=== PATIENT | female | born 1955 | race Caucasian/White ===

== ENCOUNTER 2018-02-26 13:33 | Inpatient (IN) | payer MEDICARE, BC ==
[~2018-02-26 13:33] MED LIST: BUPIVACAINE HCL 0.25%/EPI. PF 30 ML VIAL IJ ONE; DESFLURANE 240 ML LIQUID IH ONE; DEXAMETHASONE SOD PHOS 4 MG/ML VIAL ONE; ENOXAPARIN SODIUM 40 MG/0.4 ML DISP.SYRIN SQ ONE; FAMOTIDINE/PF 20 MG/2 ML VIAL ONE; GLYCOPYRROLATE 0.2 MG/1 ML 1 ML ONE; HYDROmorphone HCL/PF 1 MG/ML DISP.SYRIN ONE; LABETALOL HCL 100MG/20ML VIAL ONE; LABETALOL HCL 20 MG/4 ML SYRINGE IV ONE; LACTATED RINGERS 1,000 ML IV.SOLN IV ONE; LIDOCAINE HCL/PF 2% 100 MG/5 ML VIAL IJ ONE; MORPHINE SULFATE 10 MG/ML VIAL ONE; NORMAL SALINE 1,000 ML IV.SOLN IV ONE; ONDANSETRON HCL/PF 4 MG/ 2ML VIAL ONE; PROPOFOL 200 MG/20 ML VIAL IV ONE; ROCURONIUM BROMIDE 10 MG/ML 5ML VIAL ONE; SUCCINYLCHOLINE CHLORIDE 20 MG/ML 10ML VIAL ONE; SUGAMMADEX 200 mg/2mL 200 MG/2 ML VIAL IV ONE; ceFAZolin SODIUM 1 GM VIAL ONE; ePHEDrine SULFATE 50 MG/1 ML IVP ONE; fentaNYL CITRATE/PF 100 MCG/ 2ML AMP ONE
[2018-02-26] MEDS ORDERED: BUPIVACAINE HCL IV ONE (14:26)
[2018-02-26] MEDS ORDERED: fentaNYL CITRATE/PF 100 MCG/ 2ML AMP ONE (16:43)
[2018-02-26] MEDS ORDERED: PROMETHAZINE HCL 25 MG in 0.9 % SODIUM CHLORIDE 50 ML IV PRN (17:35)
[2018-02-26] MEDS ORDERED: ONDANSETRON HCL/PF 4 MG/ 2ML VIAL IVP PRN (17:35)
[2018-02-26] MEDS ORDERED: LEVALBUTEROL HCL 1.25 MG/3 ML AMPUL.NEB NEB PRN (17:35)
[2018-02-26] MEDS ORDERED: ACETAMINOPHEN 1,000 MG/100 ML INJ IV PRN (17:35)
--- NOTE | 2018-02-26 17:48 | History and Physical Report ---
History of Present Illnes - History of Present Illness Reason for Visit: OBesity History of Present Illness: Patient underwent sleeve gastrectomy today. She will be admitted to Acute care for further post op management. 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 Gastrointestinal: GERD Musculoskeletal: Osteoarthritis, Other (fibromyalgia) Endocrine: Hypothyroidism - Past Surgical History Past Surgical History: Cholecystectomy, Total Knee Replacement, Tonsillectomy, Other (D&C x 2) - Past Family History Mother Family History: CAD Brother 1 Family History: Hypertension Father Family History: CVA - Past Social History Smoke: No Alcohol: None Drugs: None Lives: With Family - Health Maintenance Health Maintenance: Pneumococcal Vaccine Influenza Vaccine: No Pneumonia Vaccine: No Resuscitation Status: Resusciation Status Resuscitation Status Full Code Review of Systems - Review of Systems Constitutional: negative: Fever, Weakness Eyes: negative: conjunctivae inflammation ENT: negative: Ear Pain, Nose Discharge Respiratory: negative: Cough, Shortness of Breath Cardiovascular: negative: Chest Pain Gastrointestinal: Abdominal Pain. negative: Nausea, Vomiting Genitourinary: negative: Dysuria, Frequency Musculoskeletal: negative: Back Pain Skin: negative: Rash Neurological: negative: Weakness - Medications/Allergies Allergies/Adverse Reactions: Allergies Allergy/AdvReac Type Severity Reaction Status Date / Time propoxyphene [From Darvon] Allergy Verified 02/26/18 17:17 Tetracyclines Allergy Verified 02/26/18 17:17 Home Medications: Home Medications Carisoprodol 350 mg PO QID PRN 02/26/18 Gabapentin 300 mg PO TID 02/26/18 Levothyroxine Sodium 75 mcg PO DAILY 02/26/18 Lisinopril 5 - 10 mg PO DAILY 02/26/18 Metoprolol Succinate 25 mg PO DAILY 02/26/18 Metoprolol Succinate [Toprol Xl] 12.5 mg PO DAILY 02/26/18 Omeprazole 20 mg PO DAILY 02/26/18 Promethazine HCl [Phenergan] 50 mg PO Q6H PRN 02/26/18 Simvastatin 20 mg PO DAILY 02/26/18 Tramadol HCl [Ultram] 50 mg PO BID PRN 02/26/18 Exam - Exam General: Alert, Oriented to Person, Oriented to Place, Oriented to Time, C ooperative, No acute distress HEENT: Atraumatic, PERRLA, EOMI, Mouth Mucous membr. moist/[employer] Neck: Normal Range of Motion Lungs: Clear to auscultation, Normal air movement, Speaks full Sentences Cardiovascular: Regular rate Murmur: No: Systolic Murmur Abdomen: Normal bowel sounds Integumentary: Normal Extremities: No edema Neurological: Normal gait, Normal speech, Strength Equal Bilat, Normal tone Psych/Mental Status: Mental status NL, Mood NL, Appropriate Affect Assessment/Plan - Assessment/Plan (1) S/P gastric surgery Status: Acute Current Visit: Yes Plan: Admit to Acute for IVF. SCD"s and lovenox for DVT prevention. IV H2 heidi. IV pain meds today and transisition to oral in 24 hours. (2) Morbid obesity Status: Acute Current Visit: Yes (3) HTN (hypertension) Status: Chronic Current Visit: Yes Qualifiers: Hypertension type: essential hypertension Qualified Code(s): I10 - Essential (primary) hypertension Plan: Hold lisinopril and metoprolol. Watch BP. 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 IF PVC's become symptomatic, she may have to do longer. VTE Assessment - RISK FACTOR SCORE VTE RISK FACTOR SCORES: AGE OVER 60 YEARS, MAJOR SURGERY/ANESTHESIA TIME > 1 HOUR - RISK VTE MODERATE RISK: SCORE OF 2 (RISK PROXIMAL DVT 2-4%) PROPHYAXIS NEEDED
[2018-02-26] MEDS ORDERED: ENOXAPARIN SODIUM 40 MG/0.4 ML DISP.SYRIN SQ SCH (18:00)
[2018-02-26 19:52] VITALS: BMI 128.2
[2018-02-26] MEDS ORDERED: 0.9 % SODIUM CHLORIDE 50 ML IV ONE (20:40)
[2018-02-26] MEDS: FAMOTIDINE/PF 20 MG/2 ML VIAL IVP SCH (21:20)
[2018-02-26] MEDS ORDERED: 0.9 % SODIUM CHLORIDE 250 ML IV ONE (21:29)
[2018-02-26] MEDS: MORPHINE SULFATE 4 MG/ML PREFILLED SYR IVP PRN (21:50)
[2018-02-26] MEDS: ceFAZolin SODIUM 1 GM VIAL IV SCH (21:54)
[2018-02-27] MEDS: KETOROLAC TROMETHAMINE 30 MG/1ML VIAL IVP PRN ×4 (01:00→17:58)
[2018-02-27] MEDS: 0.9 % SODIUM CHLORIDE 1,000 ML IV SCH ×4 (01:30→18:00)
[2018-02-27] MEDS: MORPHINE SULFATE 4 MG/ML PREFILLED SYR IVP PRN (01:31)
[2018-02-27] MEDS ORDERED: 0.9 % SODIUM CHLORIDE 250 ML IV ONE (05:27)
[2018-02-27] MEDS: ceFAZolin SODIUM 1 GM VIAL IV SCH (06:30)
[2018-02-27] MEDS: LEVOTHYROXINE SODIUM 25 MCG TABLET PO SCH (06:40)
[2018-02-27] MEDS ORDERED: LEVOTHYROXINE SODIUM 75 MCG PO SCH ×2 (07:00→09:00)
--- NOTE | 2018-02-27 09:02 | Inpatient Progress Note ---
Subjective - Required Recertification Statement I anticipate X number of days because-include discharge plan: 1 - Review of Systems Subjective: Patient doing great. Walking in room. Tolerating liquids. Objective - Exam Vitals and I&O: Vital Signs Temp 97.1 F L 02/27/18 06:00 Pulse 83 02/27/18 06:00 Resp 18 02/27/18 06:00 BP 143/54 02/27/18 06:00 Pulse Ox 92 02/27/18 06:00 Intake & Output 02/26/18 02/26/18 02/27/18 11:59 23:59 11:59 Intake Total 1350 1400 Balance 1350 1400 Weight 339 kg Intake: IV 1350 1300 Right Forearm 200 right hand 1350 1100 Oral 0 100 Other: Voiding Method Toilet Toilet # Voids 2 1 General: Alert, Oriented to Person, Oriented to Place, Oriented to Time, Cooperative Lungs: Clear to auscultation, Normal air movement Cardiovascular: Regular rate Abdomen: Normal bowel sounds, Soft. No: No tenderness (Mild. Bandages clean.) Assessment/Plan - Assessment/Plan (1) S/P gastric surgery Status: Acute Current Visit: Yes (2) Morbid obesity Status: Acute Current Visit: Yes (3) HTN (hypertension) Status: Chronic Current Visit: Yes Qualifiers: Hypertension type: essential hypertension Qualified Code(s): I10 - Essential (primary) hypertension Plan: Watching BP. Restart metoprolol as cardiology wanted her on it for a week post op. (4) PVC (premature ventricular contraction) Status: Chronic Current Visit: Yes
[2018-02-27] MEDS: GABAPENTIN 300 MG CAPSULE PO SCH ×3 (10:15→17:59)
[2018-02-27] MEDS: FAMOTIDINE/PF 20 MG/2 ML VIAL IVP SCH ×2 (10:15→20:35)
[2018-02-27] MEDS: ENOXAPARIN SODIUM 40 MG/0.4 ML DISP.SYRIN SQ SCH ×2 (10:15→20:27)
[2018-02-27] MEDS: METOPROLOL TARTRATE 25 MG TABLET PO SCH ×2 (10:15→20:27)
[2018-02-27] MEDS ORDERED: 0.9 % SODIUM CHLORIDE 50 ML IV ONE ×2 (10:26→20:28)
[2018-02-27] MEDS ORDERED: MORPHINE SULFATE 2 MG/ML PREFILLED SYR IVP PRN (20:08)
[2018-02-28] MEDS: 0.9 % SODIUM CHLORIDE 1,000 ML IV SCH ×2 (01:30→13:30)
[2018-02-28] MEDS: KETOROLAC TROMETHAMINE 30 MG/1ML VIAL IVP PRN ×2 (01:31→09:44)
[2018-02-28] MEDS: LEVOTHYROXINE SODIUM 25 MCG TABLET PO SCH (05:41)
[2018-02-28 06:23] VITALS: BP 139/59
--- NOTE | 2018-02-28 08:38 | Discharge Summary ---
Discharge Summary - Discharge Sumary History of Present Illness: Patient underwent sleeve gastrectomy today. She will be admitted to Acute care for further post op management. Condition at Discharge: Stable Home Medications: Ambulatory Orders Medication Instructions Recorded Carisoprodol 350 mg PO QID PRN 02/26/18 Gabapentin 300 mg PO TID 02/26/18 Levothyroxine Sodium 75 mcg PO DAILY 02/26/18 Metoprolol Succinate 25 mg PO DAILY 02/26/18 Metoprolol Succinate [Toprol Xl] 12.5 mg PO DAILY 02/26/18 Omeprazole 20 mg PO DAILY 02/26/18 Simvastatin 20 mg PO DAILY 02/26/18 Tramadol HCl [Ultram] 50 mg PO BID PRN 02/26/18 Consultations this Visit: None Procedures this Visit: Other (Sleeve Gastrectomy) Allergies/Adverse Reactions: Allergies Allergy/AdvReac Type Severity Reaction Status Date / Time propoxyphene [From Darvon] Allergy Verified 02/26/18 17:17 Tetracyclines Allergy Verified 02/26/18 17:17 Discharge Summary: Patient underwent uncomplicated sleeve gastrectomy. He was transitioned from CLD to FLD without incident. He was also transitioned from IV pain meds to po pain meds. Ambulating, IS, Lovenox, SCD for prevention. 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 Due to lower BP, lisinopril was discontinued. Patient was discharged home in good condition to follow-up with surgery and PCP in the next 1-2 weeks. Hospital Course: Discharge Dx: Morbid obesity - s/p sleeve gastrectomy. PVC. HTN. Disposition - Home
[2018-02-28] MEDS: ENOXAPARIN SODIUM 40 MG/0.4 ML DISP.SYRIN SQ SCH (09:34)
[2018-02-28] MEDS: GABAPENTIN 300 MG CAPSULE PO SCH (09:38)
[2018-02-28] MEDS: METOPROLOL TARTRATE 25 MG TABLET PO SCH (09:39)
[2018-02-28] MEDS: FAMOTIDINE/PF 20 MG/2 ML VIAL IVP SCH (09:40)
== END 2018-02-28 10:50 | disposition home or self-care (01) | DRG 621 ==
LOC: OPSURG 13:33 → SOUTH 17:16
PROVIDERS: ADMIT Family Medicine; ATTEND Family Medicine
DX: E66.01 Morbid (severe) obesity due to excess calories (principal); K44.9 Diaphragmatic hernia without obstruction or gangrene; Z98.84 Bariatric surgery status; I10 Essential (primary) hypertension; E78.5 Hyperlipidemia, unspecified; M19.90 Unspecified osteoarthritis, unspecified site; K21.9 Gastro-esophageal reflux disease without esophagitis
CPT/HCPCS: 99222; 99231; 99238; J0330; J0690; J1100; J1170; J1650; J1885; J2001; J2270; J2405; J2704; J3010; J3490; J7050; S0028; 43775; J7030; J7120; S1016